=== PATIENT | female | born 1985 | race African-American/Black ===

== ENCOUNTER 2022-02-03 12:24 | Emergency (ER) | payer MEDICARE ==
[~2022-02-03] VITALS: Ht 162.6 cm; Wt 72.0 kg
[~2022-02-03 12:24] MED LIST: HYDR-4001 MT; IRON TABLETS; NAPR-1176 MT; PRENATAL VITAMINS
[2022-02-03 12:51] VITALS: BP 129/76
[2022-02-03] MEDS ORDERED: TETRACAINE 0.5% OPHTH DROPS 4ML BOTHEYE ONE (13:30)
[2022-02-03] MEDS ORDERED: FLUORESCEIN SODIUM 1MG/STRIP BOTHEYE ONE (13:30)
[2022-02-03] MEDS ORDERED: ACET-2708 MT (14:26)
[2022-02-03] MEDS ORDERED: ERYT1OIN6 EACHEYE (14:26)
== END 2022-02-03 15:02 | disposition home or self-care (01) ==
LOC: ER 12:50
DX: S05.01XA Injury of conjunctiva and corneal abrasion without foreign body, right eye, initial encounter (principal); Z98.890 Other specified postprocedural states; Y04.0XXA Assault by unarmed brawl or fight, initial encounter; Y93.89 Activity, other specified; Y92.89 Other specified places as the place of occurrence of the external cause
CPT/HCPCS: 81025; 99283